=== PATIENT | female | born 2000 | race Caucasian/White ===

== ENCOUNTER 2023-07-31 05:35 | Day surgery (SDC) | payer BC ==
[~2023-07-31] VITALS: Ht 160 cm; Wt 114.8 kg
[2023-07-31] MEDS ORDERED: fentaNYL CITRATE/PF 100 MCG/2 ML AMP ONE ×2 (07:00→07:45)
[2023-07-31] MEDS ORDERED: CEFAZOLIN SOD 2 GM in D5W 50 ML IV ONE (07:00)
[2023-07-31 07:13] VITALS: O2SAT 98
[2023-07-31] MEDS ORDERED: SEVOFLURANE 15 MIN GAS INH ONE (07:45)
[2023-07-31] MEDS ORDERED: CLINDAMYCIN PHOSPHATE 900 mg/50mL D5W IV ONE (07:45)
[2023-07-31] MEDS ORDERED: WATER FOR IRRIGATION,STERILE 1,000 ML IRRIG.SOLN IR ONE (07:45)
[2023-07-31] MEDS ORDERED: ePHEDrine sulfate 50 MG/ML VIAL ONE (07:45)
[2023-07-31] MEDS ORDERED: DEXAMETHASONE SOD PHOSPHATE 4 MG/ML VIAL ONE (07:45)
[2023-07-31] MEDS ORDERED: GLYCOPYRROLATE 0.2 MG/ML VIAL ONE (07:45)
[2023-07-31] MEDS ORDERED: BUPIVACAINE /PF 0.25% 30 ML VIAL INJ ONE (07:45)
[2023-07-31] MEDS ORDERED: ROCURONIUM BROMIDE 10 MG/ML (ZEMURON) ONE (07:45)
[2023-07-31] MEDS ORDERED: SUCCINYLCHOLINE CHLORIDE 20 MG/ML(QUELICIN) ONE (07:45)
[2023-07-31] MEDS ORDERED: HYDROcodone/ACETAMIN 5-325 MG TAB (NORCO/ VICODIN) PO PRN (09:15)
[2023-07-31] MEDS ORDERED: OXYCODONE/ACETAMINOPHEN 5-325 TABLET PO PRN ×2 (09:15)
[2023-07-31] MEDS ORDERED: ONDANSETRON HCL 4 MG/2 ML VIAL IVP PRN ×2 (09:15→09:30)
[2023-07-31] MEDS ORDERED: HYDROmorphone 1 MG/ML INJ. CARTRIDGE IVP PRN (09:30)
[2023-07-31] MEDS ORDERED: METOCLOPRAMIDE HCL 10 MG/2 ML VIAL IVP PRN (09:30)
[2023-07-31] MEDS ORDERED: MORPHINE 4 MG INJ. 4 MG/ML VIAL IVP PRN (09:30)
[2023-07-31] MEDS: MORPHINE 4 MG INJ. 4 MG/ML VIAL IVP PRN (09:46)
[2023-07-31] MEDS ORDERED: MORPHINE 4 MG INJ. 4 MG/ML VIAL ONE (09:47)
[2023-07-31 12:39] VITALS: BP_SYST 128; PULSE 82; RESP 16
== END 2023-07-31 11:50 | disposition home or self-care (01) ==
LOC: SMU 05:35 → SDS 05:35
PROVIDERS: ATTEND Specialist
DX: N83.201 Unspecified ovarian cyst, right side (principal); N72 Inflammatory disease of cervix uteri; N87.9 Dysplasia of cervix uteri, unspecified; N83.8 Other noninflammatory disorders of ovary, fallopian tube and broad ligament; R10.2 Pelvic and perineal pain; N92.6 Irregular menstruation, unspecified; E11.9 Type 2 diabetes mellitus without complications; E66.01 Morbid (severe) obesity due to excess calories; K21.9 Gastro-esophageal reflux disease without esophagitis; J45.909 Unspecified asthma, uncomplicated; Z98.890 Other specified postprocedural states; Z68.41 Body mass index [BMI] 40.0-44.9, adult; Z88.0 Allergy status to penicillin; Z79.84 Long term (current) use of oral hypoglycemic drugs; Z79.899 Other long term (current) drug therapy
CPT/HCPCS: 58662; 58120; 87081; 82948; 88108; 88305; J3490 ×3; J0690; J1100; J0330; J3010; J2270; J7060; C1727